=== PATIENT | female | born 1985 | race African-American/Black ===

== ENCOUNTER 2016-12-31 22:11 | Emergency (ER) | payer OTHER ==
[~2016-12-31] VITALS: Ht 152.4 cm; Wt 59.0 kg
[~2016-12-31 22:11] MED LIST: DIVA500T35 PO
[2016-12-31 23:35] LABS: BASOPHILS % (AUTO) 0.2 % (0.0-2.0); EOSINOPHILS % (AUTO) 0.6 % (1.0-6.0); HEMATOCRIT 40.8 % (36-46); LYMPHOCYTES % (AUTO) 21.6 % (22.0-44.0); MEAN CORPUSCULAR HEMOGLOBIN 27.7 pg (26.0-34.0); MEAN CORPUSCULAR HGB CONC 31.7 G/dL (31.0-37.0); MEAN CORPUSCULAR VOLUME 87 fL (80-100); MONOCYTES # (AUTO) 0.5 K/uL (0.1-1.0); MONOCYTES % (AUTO) 4.9 % (2.0-9.0); NEUTROPHILS # (AUTO) 6.7 K/uL (1.8-7.7); NEUTROPHILS % (AUTO) 72.7 % (40.0-70.0); PLATELET COUNT (AUTO) 276 K/uL (150-450); RED BLOOD CELL COUNT(AUTO) 4.68 MIL/uL (4.00-5.20); WHITE BLOOD COUNT (AUTO) 9.2 K/uL (4.5-11.0)
[2016-12-31 23:45] LABS: ANION GAP 8 mmol/L (8-16); CALCIUM, TOTAL 8.8 mg/dL (8.8-10.5); CARBON DIOXIDE 27 mmol/L (22-29); CHLORIDE 100 mmol/L (98-107); CREATININE 0.75 mg/dL (0.60-1.30); GLOMERULAR FILTR. RATE CALC > 60 mL/min (>60); POTASSIUM 3.8 mmol/L (3.5-5.1); SODIUM SERUM 135 mmol/L (136-145); UREA NITROGEN, BLOOD 7 mg/dL (7-18)
[2016-12-31 23:50] LABS: ALANINE AMINOTRANSFERASE 16 U/L (12-78); ALBUMIN 3.7 g/dL (3.4-5.0); ASPARTATE AMINOTRANSFERASE 16 U/L (15-37); BILIRUBIN,TOTAL 0.2 mg/dL (0.1-1.0); TOTAL PROTEIN, SERUM 7.2 g/dL (6.4-8.2)
[2017-01-01] MEDS ORDERED: ACETAMINOPHEN 500 MG TABLET PO ONE (01:30)
[2017-01-01] MEDS ORDERED: PROMETHAZINE HCL 25 MG/ML VIAL IM ONE (03:15)
[2017-01-01] MEDS ORDERED: KETOROLAC TROMETHAMINE 60 MG/2 ML VIAL IM ONE (03:15)
[2017-01-01 04:49] VITALS: BP 111/59
== END 2017-01-01 05:32 | disposition home or self-care (01) ==
LOC: EMS 22:13
DX: F20.0 Paranoid schizophrenia (principal); G43.909 Migraine, unspecified, not intractable, without status migrainosus; F17.210 Nicotine dependence, cigarettes, uncomplicated
CPT/HCPCS: 36415; 80053; 80307; 84703; 85025; 96372; 99284; G0480; J1885; J2550

== ENCOUNTER 2017-01-03 00:34 | Emergency (ER) | payer OTHER ==
[~2017-01-03] VITALS: Ht 160 cm; Wt 45.5 kg
[2017-01-03] MEDS ORDERED: PROMETHAZINE HCL 25 MG/ML VIAL IM ONE (04:00)
[2017-01-03] MEDS ORDERED: MORPHINE SULFATE 4 MG/ML SYRINGE IM ONE (04:00)
[2017-01-03] MEDS ORDERED: DEXAMETHASONE SOD PHOS 4 MG/ML 5 ML VIAL IM ONE (04:00)
[2017-01-03] MEDS ORDERED: HALOPERIDOL LACTATE 5 MG/ML VIAL IM ONE (04:30)
[2017-01-03 06:18] VITALS: BP 117/73
== END 2017-01-03 06:23 | disposition home or self-care (01) ==
LOC: EMS 00:37
DX: G89.29 Other chronic pain (principal); F20.9 Schizophrenia, unspecified; R51 Headache; F17.210 Nicotine dependence, cigarettes, uncomplicated
CPT/HCPCS: 96372; 99284; J1100; J1630; J2270; J2550

== ENCOUNTER 2017-01-20 16:46 | Inpatient (IN) | payer MEDICARE, MEDICAID ==
[~2017-01-20] VITALS: Ht 152.4 cm; Wt 48.8 kg
[2017-01-20] MEDS ORDERED: ZOLPIDEM TARTRATE 10 MG TABLET PO PRN (17:15)
[2017-01-20] MEDS ORDERED: LORazepam 2 MG TABLET PO PRN (17:15)
[2017-01-20 17:38] VITALS: BP 132/84
[2017-01-20 19:26] VITALS: BP_SYST 110; BP_DIAS 73; BP_DIAS 74
[2017-01-20 20:55] VITALS: BP 130/78
[2017-01-20] MEDS: ACETAMINOPHEN 325 MG TABLET PO PRN (20:55)
[2017-01-20] MEDS: HALOPERIDOL 5 MG TABLET PO PRN (20:55)
[2017-01-21 07:09] LABS: BASOPHILS % (AUTO) 0.5 % (0.0-2.0); EOSINOPHILS % (AUTO) 3.2 % (1.0-6.0); HEMATOCRIT 38.8 % (36-46); HEMOGLOBIN 13.1 g/dL (12.0-16.0); LYMPHOCYTES % (AUTO) 53.4 % (22.0-44.0); MEAN CORPUSCULAR HEMOGLOBIN 29.7 pg (26.0-34.0); MEAN CORPUSCULAR HGB CONC 33.7 G/dL (31.0-37.0); MEAN CORPUSCULAR VOLUME 88 fL (80-100); MONOCYTES # (AUTO) 0.5 K/uL (0.1-1.0); MONOCYTES % (AUTO) 8.5 % (2.0-9.0); NEUTROPHILS # (AUTO) 1.9 K/uL (1.8-7.7); NEUTROPHILS % (AUTO) 34.4 % (40.0-70.0); PLATELET COUNT (AUTO) 312 K/uL (150-450); RED CELL DISTRIBUTION WIDTH 15.2 % (11.5-14.5); WHITE BLOOD COUNT (AUTO) 5.6 K/uL (4.5-11.0)
[2017-01-21 07:25] LABS: HEMOGLOBIN A1C 5.5 % (4.5-6.2)
[2017-01-21 08:15] LABS: ALANINE AMINOTRANSFERASE 15 U/L (12-78); ALBUMIN 3.2 g/dL (3.4-5.0); ANION GAP 7 mmol/L (8-16); ASPARTATE AMINOTRANSFERASE 16 U/L (15-37); BILIRUBIN,TOTAL 0.4 mg/dL (0.1-1.0); CALCIUM, TOTAL 8.8 mg/dL (8.8-10.5); CARBON DIOXIDE 28 mmol/L (22-29); CHLORIDE 105 mmol/L (98-107); CHOL/HDL RATIO 2.4 (3.9-5.7); CREATININE 0.66 mg/dL (0.60-1.30); GLOMERULAR FILTR. RATE CALC > 60 mL/min (>60); POTASSIUM 3.7 mmol/L (3.5-5.1); SODIUM SERUM 140 mmol/L (136-145); TOTAL PROTEIN, SERUM 6.4 g/dL (6.4-8.2); UREA NITROGEN, BLOOD 10 mg/dL (7-18)
[2017-01-21 08:18] VITALS: BP 103/74
[2017-01-21] MEDS: NICOTINE 7 MG/24 HOUR PATCH TD SCH (08:26)
[2017-01-21 08:52] LABS: THYROID STIMULATING HORMONE 0.55 uIU/mL (0.36-3.74)
[2017-01-21 16:41] VITALS: BP 132/87
[2017-01-21] MEDS: HALOPERIDOL 5 MG TABLET PO PRN (16:51)
[2017-01-21] MEDS: ACETAMINOPHEN 325 MG TABLET PO PRN (16:53)
[2017-01-21 17:54] LABS: APPEARANCE,URINE TURBID (CLEAR); GLUCOSE, URINE (UA) NEGATIVE (NEGATIVE); KETONES,URINE NEGATIVE (NEGATIVE); LEUKOCYTE ESTERASE ,URINE NEGATIVE (NEGATIVE); OCCULT BLOOD,URINE NEGATIVE (NEGATIVE); PH,URINE 7.5 (5.0-8.0); PROTEIN,URINE NEGATIVE (NEGATIVE)
[2017-01-21 18:10] LABS: ADD UA MICROSCOPIC NO
[2017-01-22 01:10] VITALS: BP 135/98
[2017-01-22] MEDS: ACETAMINOPHEN 325 MG TABLET PO PRN ×4 (01:13→23:49)
[2017-01-22 08:30] VITALS: BP 108/60
[2017-01-22] MEDS: NICOTINE 7 MG/24 HOUR PATCH TD SCH (08:31)
[2017-01-22 16:24] VITALS: BP 124/83
[2017-01-22] MEDS: HALOPERIDOL 5 MG TABLET PO PRN (17:08)
[2017-01-22 17:10] VITALS: BP 118/74
[2017-01-23 06:02] VITALS: BP 136/91
[2017-01-23 10:55] VITALS: BP 133/91
[2017-01-23] MEDS: ACETAMINOPHEN 325 MG TABLET PO PRN (10:58)
[2017-01-23] MEDS: NICOTINE 7 MG/24 HOUR PATCH TD SCH (10:58)
[2017-01-23] MEDS: HALOPERIDOL 5 MG TABLET PO PRN (11:43)
[2017-01-23 16:51] VITALS: BP 111/63
[2017-01-23] MEDS: RisperiDONE 2 MG TABLET PO SCH (18:37)
[2017-01-23] MEDS: DIVALPROEX SODIUM 500 MG ER TABLET PO SCH (18:37)
[2017-01-24 00:05] VITALS: BP 139/60
[2017-01-24] MEDS: ACETAMINOPHEN 325 MG TABLET PO PRN (00:10)
[2017-01-24 08:00] VITALS: BP 104/61
[2017-01-24] MEDS: DIVALPROEX SODIUM 500 MG ER TABLET PO SCH ×2 (08:24→17:24)
[2017-01-24] MEDS: RisperiDONE 2 MG TABLET PO SCH (08:24)
[2017-01-24] MEDS: NICOTINE 7 MG/24 HOUR PATCH TD SCH (08:26)
[2017-01-24 16:14] VITALS: BP 110/70
[2017-01-25] MEDS: ARIPiprazole 15 MG TABLET PO SCH (08:31)
[2017-01-25] MEDS: NICOTINE 7 MG/24 HOUR PATCH TD SCH (08:32)
[2017-01-25] MEDS: DIVALPROEX SODIUM 500 MG ER TABLET PO SCH ×2 (08:32→17:00)
[2017-01-25 10:22] VITALS: BP 115/70
[2017-01-25 19:30] VITALS: BP 108/69
[2017-01-25] MEDS: ACETAMINOPHEN 325 MG TABLET PO PRN (19:30)
[2017-01-26 09:14] VITALS: BP 114/85
[2017-01-26] MEDS: DIVALPROEX SODIUM 500 MG ER TABLET PO SCH ×2 (09:54→17:00)
[2017-01-26] MEDS: NICOTINE 7 MG/24 HOUR PATCH TD SCH (09:54)
[2017-01-26] MEDS: ARIPiprazole 15 MG TABLET PO SCH (09:54)
[2017-01-26 17:30] VITALS: BP 102/77
[2017-01-26] MEDS: ACETAMINOPHEN 325 MG TABLET PO PRN (17:31)
[2017-01-27 03:09] VITALS: BP 107/79
[2017-01-27] MEDS: NICOTINE 7 MG/24 HOUR PATCH TD SCH (08:07)
[2017-01-27] MEDS: ARIPiprazole 15 MG TABLET PO SCH (08:07)
[2017-01-27] MEDS: DIVALPROEX SODIUM 500 MG ER TABLET PO SCH ×2 (08:09→16:00)
[2017-01-27 08:13] VITALS: BP 108/80
[2017-01-27] MEDS: ACETAMINOPHEN 325 MG TABLET PO PRN ×2 (08:13→15:59)
[2017-01-27 08:49] VITALS: BP 108/80
[2017-01-27 09:13] VITALS: BP 120/80
[2017-01-27 15:59] VITALS: BP 114/73
[2017-01-28] MEDS: ARIPiprazole 15 MG TABLET PO SCH (08:36)
[2017-01-28] MEDS: DIVALPROEX SODIUM 500 MG ER TABLET PO SCH ×3 (08:36→16:08)
[2017-01-28] MEDS: NICOTINE 7 MG/24 HOUR PATCH TD SCH (08:37)
[2017-01-28 09:14] VITALS: BP 129/63
[2017-01-28 16:05] VITALS: BP 113/64
[2017-01-28] MEDS: ACETAMINOPHEN 325 MG TABLET PO PRN (16:07)
[2017-01-28 17:05] VITALS: BP 128/68
[2017-01-29 08:45] VITALS: BP 110/78
[2017-01-29] MEDS: DIVALPROEX SODIUM 500 MG ER TABLET PO SCH (09:00)
[2017-01-29] MEDS: ARIPiprazole 15 MG TABLET PO SCH (09:19)
[2017-01-29] MEDS: NICOTINE 7 MG/24 HOUR PATCH TD SCH (09:20)
[2017-01-29] MEDS ORDERED: ARIP15TA3 PO (12:07)
[2017-01-29] MEDS ORDERED: DIVA500T52 PO (12:08)
[2017-01-29] MEDS ORDERED: NICO7T TD (12:09)
== END 2017-01-29 12:45 | disposition home or self-care (01) | DRG 885 ==
LOC: 3EX 17:18 → EDSTATUS 17:43 → 3EX 18:00
PROVIDERS: ADMIT Psychiatry & Neurology Psychiatry; ATTEND Psychiatry & Neurology Psychiatry
DX: F20.0 Paranoid schizophrenia (principal); E87.1 Hypo-osmolality and hyponatremia; R45.851 Suicidal ideations; F12.90 Cannabis use, unspecified, uncomplicated; E55.9 Vitamin D deficiency, unspecified; Z59.0 Homelessness; Z82.3 Family history of stroke; Z85.41 Personal history of malignant neoplasm of cervix uteri
CPT/HCPCS: 83036; 84439; 84443; 86592

== ENCOUNTER 2017-05-14 19:22 | Emergency (ER) | payer MEDICARE, OTHER ==
[~2017-05-14] VITALS: Ht 147.3 cm; Wt 44.0 kg
[~2017-05-14 19:22] MED LIST changes: +ARIP15TA2 PO; -DIVA500T35 PO; +DIVA500T52 PO
[2017-05-14 20:07] LABS: BASOPHILS % (AUTO) 0.4 % (0.0-2.0); EOSINOPHILS % (AUTO) 0.8 % (1.0-6.0); HEMATOCRIT 38.9 % (36-46); HEMOGLOBIN 13.1 g/dL (12.0-16.0); LYMPHOCYTES # (AUTO) 2.3 K/uL (1.0-4.8); LYMPHOCYTES % (AUTO) 24.9 % (22.0-44.0); MEAN CORPUSCULAR HGB CONC 33.7 G/dL (31.0-37.0); MEAN CORPUSCULAR VOLUME 89 fL (80-100); MONOCYTES # (AUTO) 0.5 K/uL (0.1-1.0); MONOCYTES % (AUTO) 5.6 % (2.0-9.0); NEUTROPHILS # (AUTO) 6.2 K/uL (1.8-7.7); NEUTROPHILS % (AUTO) 68.3 % (40.0-70.0); PLATELET COUNT (AUTO) 338 K/uL (150-450); RED BLOOD CELL COUNT(AUTO) 4.38 MIL/uL (4.00-5.20)
[2017-05-14 20:21] LABS: ANION GAP 7 mmol/L (8-16); CALCIUM, TOTAL 8.9 mg/dL (8.8-10.5); CARBON DIOXIDE 28 mmol/L (22-29); CHLORIDE 105 mmol/L (98-107); CREATININE 0.74 mg/dL (0.60-1.30); GLOMERULAR FILTR. RATE CALC > 60 mL/min (>60); POTASSIUM 3.6 mmol/L (3.5-5.1); SODIUM SERUM 140 mmol/L (136-145); UREA NITROGEN, BLOOD 10 mg/dL (7-18)
[2017-05-14 20:26] LABS: ALANINE AMINOTRANSFERASE 21 U/L (12-78); ALBUMIN 3.7 g/dL (3.4-5.0); ASPARTATE AMINOTRANSFERASE 38 U/L (15-37); BILIRUBIN,TOTAL 0.5 mg/dL (0.1-1.0)
[2017-05-14] MEDS ORDERED: LORazepam 2 MG TABLET PO ONE (20:45)
[2017-05-14] MEDS ORDERED: IBUPROFEN 600 MG TABLET PO ONE (20:45)
[2017-05-14 21:08] VITALS: BP 122/79
== END 2017-05-14 21:13 | disposition home or self-care (01) ==
LOC: EMS 19:23
DX: F41.9 Anxiety disorder, unspecified (principal); R51 Headache; F20.9 Schizophrenia, unspecified; F17.210 Nicotine dependence, cigarettes, uncomplicated
CPT/HCPCS: 36415; 80053; 80307; 85025; 99285; G0480

== ENCOUNTER 2018-03-06 22:16 | Inpatient (IN) | payer MEDICARE, MEDICAID ==
[~2018-03-06] VITALS: Ht 152.4 cm; Wt 50.3 kg
[2018-03-06] MEDS ORDERED: ACET500C4 PO (23:04)
[2018-03-06] MEDS ORDERED: IBUP-2070 PO (23:04)
[2018-03-06 23:23] LABS: EOSINOPHILS % (AUTO) 4.3 % (1.0-6.0); HEMATOCRIT 38.2 % (36-46); HEMOGLOBIN 12.9 g/dL (12.0-16.0); LYMPHOCYTES % (AUTO) 44.7 % (22.0-44.0); MEAN CORPUSCULAR HEMOGLOBIN 29.3 pg (26.0-34.0); MEAN CORPUSCULAR HGB CONC 33.9 G/dL (31.0-37.0); MEAN CORPUSCULAR VOLUME 87 fL (80-100); MONOCYTES # (AUTO) 0.4 K/uL (0.1-1.0); MONOCYTES % (AUTO) 5.7 % (2.0-9.0); NEUTROPHILS % (AUTO) 44.3 % (40.0-70.0); PLATELET COUNT (AUTO) 306 K/uL (150-450); RED BLOOD CELL COUNT(AUTO) 4.41 MIL/uL (4.00-5.20)
[2018-03-06 23:30] LABS: AMPHET/METH SCREEN,URINE NEGATIVE (NEGATIVE); BARBITURATE SCREEN, URINE NEGATIVE (NEGATIVE); BENZODIAZEPINES SCREEN,URINE NEGATIVE (NEGATIVE); CANNABINOID SCREEN,URINE NEGATIVE (NEGATIVE); COCAINE SCREEN,URINE NEGATIVE (NEGATIVE); METHADONE SCREEN, URINE NEGATIVE (NEGATIVE); OPIATE SCREEN,URINE NEGATIVE (NEGATIVE)
[2018-03-06 23:33] LABS: PHENCYCLIDINE SCREEN,URINE NEGATIVE (NEGATIVE)
[2018-03-06 23:42] LABS: ANION GAP 8 mmol/L (8-16); CALCIUM, TOTAL 9.1 mg/dL (8.8-10.5); CARBON DIOXIDE 28 mmol/L (22-29); CHLORIDE 108 mmol/L (98-107); CREATININE 0.65 mg/dL (0.60-1.30); GLOMERULAR FILTR. RATE CALC > 60 mL/min (>60); GLUCOSE,RANDOM 96 mg/dL (70-110); SODIUM SERUM 144 mmol/L (136-145); UREA NITROGEN, BLOOD 10 mg/dL (7-18)
[2018-03-06 23:49] LABS: ALANINE AMINOTRANSFERASE 26 U/L (12-78); ALBUMIN 3.1 g/dL (3.4-5.0); ALKALINE PHOSPHATASE 83 U/L (46-116); ASPARTATE AMINOTRANSFERASE 16 U/L (15-37); BILIRUBIN,TOTAL 0.1 mg/dL (0.1-1.0); TOTAL PROTEIN, SERUM 6.7 g/dL (6.4-8.2)
[2018-03-07] MEDS ORDERED: LORazepam 2 MG TABLET PO PRN (00:30)
[2018-03-07] MEDS ORDERED: HALOPERIDOL 5 MG TABLET PO PRN (00:30)
[2018-03-07 03:33] VITALS: BP 118/79
[2018-03-07 08:05] VITALS: BP 119/68
[2018-03-07 16:11] VITALS: BP 112/72
[2018-03-07] MEDS ORDERED: ONDANSETRON HCL 4 MG TABLET PO PRN (17:15)
[2018-03-07] MEDS ORDERED: LOPERAMIDE HCL 2 MG CAPSULE PO PRN (17:15)
[2018-03-07] MEDS ORDERED: CloNIDine HCL 0.1 MG TABLET PO PRN (17:15)
[2018-03-07] MEDS ORDERED: BACITRACIN 28.4 GM OINTMENT TP PRN (17:15)
[2018-03-07] MEDS ORDERED: IBUPROFEN 600 MG TABLET PO PRN (17:15)
[2018-03-07] MEDS ORDERED: ALBUTEROL SULFATE HFA 90 MCG/PUFF 8 GM INHALER IH PRN ×2 (17:15→20:00)
[2018-03-07] MEDS ORDERED: MAG HYDROX/AL HYDROX/SIMETH ES 30 ML SUSPENSION UDCUP PO PRN (17:15)
[2018-03-07] MEDS ORDERED: PETROLATUM,WHITE 71 GM JELLY TP PRN (17:15)
[2018-03-07] MEDS ORDERED: MAGNESIUM HYDROXIDE SUSPENSION 30 ML UDCUP PO PRN (17:15)
[2018-03-07] MEDS ORDERED: BENZOCAINE/MENTHOL LOZENGE MM PRN (17:15)
[2018-03-07] MEDS: ACETAMINOPHEN 325 MG TABLET PO PRN (17:33)
[2018-03-07] MEDS: ZOLPIDEM TARTRATE 10 MG TABLET PO PRN (20:52)
[2018-03-08 08:35] VITALS: BP 107/66
[2018-03-08] MEDS: OMEPRAZOLE 20 MG CAPSULE PO SCH (08:43)
[2018-03-08] MEDS: DOCUSATE SODIUM 100 MG CAPSULE PO SCH (08:43)
[2018-03-08 11:08] VITALS: BP 116/72
[2018-03-08] MEDS: ACETAMINOPHEN 325 MG TABLET PO PRN (11:09)
[2018-03-08 15:02] VITALS: BP 116/72
[2018-03-08 16:09] VITALS: BP 111/67
[2018-03-08] MEDS: RisperiDONE 2 MG TABLET PO SCH (16:59)
[2018-03-08] MEDS: DIVALPROEX SODIUM 500 MG ER TABLET PO SCH (16:59)
[2018-03-09 00:04] VITALS: BP 110/68
[2018-03-09] MEDS: ZOLPIDEM TARTRATE 10 MG TABLET PO PRN ×2 (00:05→21:35)
[2018-03-09 06:50] VITALS: BP 121/68
[2018-03-09] MEDS: ACETAMINOPHEN 325 MG TABLET PO PRN (07:08)
[2018-03-09 07:59] LABS: CHOL/HDL RATIO 2.9 (3.9-5.7)
[2018-03-09 08:15] VITALS: BP 105/69
[2018-03-09] MEDS: OMEPRAZOLE 20 MG CAPSULE PO SCH (09:00)
[2018-03-09] MEDS: DOCUSATE SODIUM 100 MG CAPSULE PO SCH (09:00)
[2018-03-09] MEDS: DIVALPROEX SODIUM 500 MG ER TABLET PO SCH ×2 (09:00→17:00)
[2018-03-09] MEDS: RisperiDONE 2 MG TABLET PO SCH ×2 (09:00→17:00)
[2018-03-09] MEDS ORDERED: DEXTRAN 70 0.1%/HYPROMELL 0.3% 0.9 ML OPHTHALMIC SOLUTION [PF] OU PRN ×2 (16:00)
[2018-03-09 17:58] VITALS: BP 117/69
[2018-03-10 00:38] VITALS: BP 107/65
[2018-03-10] MEDS: DOCUSATE SODIUM 100 MG CAPSULE PO SCH (08:13)
[2018-03-10] MEDS: DIVALPROEX SODIUM 500 MG ER TABLET PO SCH (08:13)
[2018-03-10] MEDS: OMEPRAZOLE 20 MG CAPSULE PO SCH (08:14)
[2018-03-10] MEDS: RisperiDONE 2 MG TABLET PO SCH (08:14)
[2018-03-10 08:25] VITALS: BP 102/73
[2018-03-10] MEDS: ACETAMINOPHEN 325 MG TABLET PO PRN (14:18)
[2018-03-10] MEDS ORDERED: DIVA250T60 PO (14:24)
[2018-03-10] MEDS ORDERED: DOCU100C33 PO (14:25)
[2018-03-10] MEDS ORDERED: OMEP20 PO (14:25)
[2018-03-10] MEDS ORDERED: RISP2TAB76 PO (14:25)
== END 2018-03-10 16:07 | disposition home or self-care (01) | DRG 885 ==
LOC: EMS 22:18 → B2S 03-07 01:46
PROVIDERS: ADMIT Psychiatry & Neurology Psychiatry; ATTEND Psychiatry & Neurology Psychiatry
DX: F25.9 Schizoaffective disorder, unspecified (principal); R45.851 Suicidal ideations; F17.200 Nicotine dependence, unspecified, uncomplicated; F12.90 Cannabis use, unspecified, uncomplicated; K59.00 Constipation, unspecified; H26.9 Unspecified cataract; G47.00 Insomnia, unspecified; F41.9 Anxiety disorder, unspecified; R51 Headache; Z71.6 Tobacco abuse counseling; Z71.51 Drug abuse counseling and surveillance of drug abuser; Z79.899 Other long term (current) drug therapy
CPT/HCPCS: 99285; G0480

== ENCOUNTER 2018-03-08 20:08 | Emergency (ER) | payer OTHER ==
[~2018-03-08] VITALS: Ht 152.4 cm; Wt 50.9 kg
[~2018-03-08 20:08] MED LIST changes: +ACET500C4 PO; -DIVA500T52 PO; +IBUP-2070 PO
[2018-03-08] MEDS ORDERED: DEXTRAN 70 0.1%/HYPROMELL 0.3% 0.9 ML OPHTHALMIC SOLUTION [PF] OU ONE (22:45)
[2018-03-08] MEDS ORDERED: ACETAMINOPHEN 500 MG TABLET PO ONE (22:45)
[2018-03-08 22:59] VITALS: BP 100/60
== END 2018-03-08 23:23 | disposition home or self-care (01) ==
LOC: EMS 20:09
DX: H26.223 Cataract secondary to ocular disorders (degenerative) (inflammatory), bilateral (principal); F41.9 Anxiety disorder, unspecified; F17.210 Nicotine dependence, cigarettes, uncomplicated; F20.9 Schizophrenia, unspecified; F12.90 Cannabis use, unspecified, uncomplicated; Z79.899 Other long term (current) drug therapy
CPT/HCPCS: 99283; 99284

== ENCOUNTER 2018-04-13 18:35 | Emergency (ER) | payer OTHER ==
[~2018-04-13] VITALS: Ht 152.4 cm; Wt 52.3 kg
[~2018-04-13 18:35] MED LIST changes: -ACET500C4 PO; -ARIP15TA2 PO; +DIVA250T60 PO; +DOCU100C33 PO; -IBUP-2070 PO; +OMEP20 PO; +RISP2TAB76 PO
[2018-04-13] MEDS ORDERED: ACETAMINOPHEN 500 MG TABLET PO ONE (20:45)
[2018-04-13 20:54] VITALS: BP 124/78
== END 2018-04-13 21:00 | disposition home or self-care (01) ==
LOC: EMS 18:38
DX: H57.13 Ocular pain, bilateral (principal); F20.9 Schizophrenia, unspecified; F12.90 Cannabis use, unspecified, uncomplicated; F14.90 Cocaine use, unspecified, uncomplicated; F17.210 Nicotine dependence, cigarettes, uncomplicated
CPT/HCPCS: 99283; 99406

== ENCOUNTER 2018-09-17 07:37 | Emergency (ER) | payer OTHER ==
[~2018-09-17] VITALS: Ht 172.7 cm; Wt 49.1 kg
[2018-09-17] MEDS ORDERED: PALI39DI IM (08:26)
[2018-09-17 08:41] LABS: EOSINOPHILS % (AUTO) 0.9 % (1.0-6.0); HEMATOCRIT 41.7 % (36-46); LYMPHOCYTES # (AUTO) 1.9 K/uL (1.0-4.8); LYMPHOCYTES % (AUTO) 22.2 % (22.0-44.0); MEAN CORPUSCULAR HEMOGLOBIN 28.7 pg (26.0-34.0); MEAN CORPUSCULAR HGB CONC 33.6 G/dL (31.0-37.0); MEAN CORPUSCULAR VOLUME 86 fL (80-100); MONOCYTES # (AUTO) 0.5 K/uL (0.1-1.0); MONOCYTES % (AUTO) 5.9 % (2.0-9.0); PLATELET COUNT (AUTO) 326 K/uL (150-450); RED BLOOD CELL COUNT(AUTO) 4.88 MIL/uL (4.00-5.20); RED CELL DISTRIBUTION WIDTH 14.7 % (11.5-14.5)
[2018-09-17 08:51] LABS: AMPHET/METH SCREEN,URINE POSITIVE (NEGATIVE); BARBITURATE SCREEN, URINE NEGATIVE (NEGATIVE); BENZODIAZEPINES SCREEN,URINE NEGATIVE (NEGATIVE); CANNABINOID SCREEN,URINE POSITIVE (NEGATIVE); COCAINE SCREEN,URINE POSITIVE (NEGATIVE); METHADONE SCREEN, URINE NEGATIVE (NEGATIVE); OPIATE SCREEN,URINE NEGATIVE (NEGATIVE)
[2018-09-17 08:53] LABS: PHENCYCLIDINE SCREEN,URINE NEGATIVE (NEGATIVE)
[2018-09-17 09:00] LABS: ANION GAP 5 mmol/L (8-16); CALCIUM, TOTAL 9.2 mg/dL (8.8-10.5); CARBON DIOXIDE 32 mmol/L (22-29); CHLORIDE 102 mmol/L (98-107); CREATININE 0.69 mg/dL (0.60-1.30); GLOMERULAR FILTR. RATE CALC > 60 mL/min (>60); GLUCOSE,RANDOM 80 mg/dL (70-110); POTASSIUM 4.1 mmol/L (3.5-5.1); SODIUM SERUM 139 mmol/L (136-145); UREA NITROGEN, BLOOD 8 mg/dL (7-18)
[2018-09-17 09:12] LABS: ALANINE AMINOTRANSFERASE 20 U/L (12-78); ALBUMIN 3.3 g/dL (3.4-5.0); ALKALINE PHOSPHATASE 112 U/L (46-116); ASPARTATE AMINOTRANSFERASE 21 U/L (15-37); BILIRUBIN,TOTAL 0.2 mg/dL (0.1-1.0); HCG,QUANTITATIVE < 1 mIU/mL (0-6); TOTAL PROTEIN, SERUM 7.1 g/dL (6.4-8.2)
[2018-09-17 09:53] VITALS: BP 115/68
== END 2018-09-17 10:23 | disposition home or self-care (01) ==
LOC: EMS 07:39
DX: F20.9 Schizophrenia, unspecified (principal); F19.10 Other psychoactive substance abuse, uncomplicated; H26.9 Unspecified cataract; F17.210 Nicotine dependence, cigarettes, uncomplicated; F12.90 Cannabis use, unspecified, uncomplicated; F11.90 Opioid use, unspecified, uncomplicated
CPT/HCPCS: 36415; 80053; 80307; 84702; 85025; 99285; G0480

== ENCOUNTER 2019-01-02 21:15 | Emergency (ER) | payer OTHER ==
[~2019-01-02] VITALS: Ht 149.9 cm; Wt 50.0 kg
[~2019-01-02 21:15] MED LIST changes: -DIVA250T60 PO; -DOCU100C33 PO; -OMEP20 PO; +PALI39DI IM; -RISP2TAB76 PO
[2019-01-02 23:58] VITALS: BP 119/54
== END 2019-01-03 | disposition home or self-care (01) ==
LOC: EMS 21:16
DX: F41.9 Anxiety disorder, unspecified (principal); F20.9 Schizophrenia, unspecified; F17.210 Nicotine dependence, cigarettes, uncomplicated; F12.90 Cannabis use, unspecified, uncomplicated

== ENCOUNTER 2019-02-08 20:31 | Emergency (ER) | payer OTHER ==
[~2019-02-08] VITALS: Ht 152.4 cm; Wt 53.6 kg
[2019-02-08 23:38] LABS: BASOPHILS % (AUTO) 0.6 % (0.0-2.0); EOSINOPHILS % (AUTO) 1.5 % (1.0-6.0); HEMOGLOBIN 12.1 g/dL (12.0-16.0); LYMPHOCYTES # (AUTO) 2.2 K/uL (1.0-4.8); LYMPHOCYTES % (AUTO) 29.1 % (22.0-44.0); MEAN CORPUSCULAR HEMOGLOBIN 29.5 pg (26.0-34.0); MEAN CORPUSCULAR HGB CONC 33.6 G/dL (31.0-37.0); MEAN CORPUSCULAR VOLUME 88 fL (80-100); MONOCYTES # (AUTO) 0.6 K/uL (0.1-1.0); MONOCYTES % (AUTO) 8.3 % (2.0-9.0); NEUTROPHILS # (AUTO) 4.5 K/uL (1.8-7.7); NEUTROPHILS % (AUTO) 60.5 % (40.0-70.0); PLATELET COUNT (AUTO) 226 K/uL (150-450); RED BLOOD CELL COUNT(AUTO) 4.09 MIL/uL (4.00-5.20); RED CELL DISTRIBUTION WIDTH 13.7 % (11.5-14.5)
[2019-02-08 23:42] LABS: AMPHET/METH SCREEN,URINE NEGATIVE (NEGATIVE); BARBITURATE SCREEN, URINE NEGATIVE (NEGATIVE); BENZODIAZEPINES SCREEN,URINE NEGATIVE (NEGATIVE); CANNABINOID SCREEN,URINE POSITIVE (NEGATIVE); COCAINE SCREEN,URINE POSITIVE (NEGATIVE); METHADONE SCREEN, URINE NEGATIVE (NEGATIVE); OPIATE SCREEN,URINE NEGATIVE (NEGATIVE); PHENCYCLIDINE SCREEN,URINE NEGATIVE (NEGATIVE)
[2019-02-08 23:51] LABS: ANION GAP 8 mmol/L (8-16); CALCIUM, TOTAL 9.1 mg/dL (8.8-10.5); CARBON DIOXIDE 24 mmol/L (22-29); CHLORIDE 104 mmol/L (98-107); CREATININE 0.59 mg/dL (0.60-1.30); GLOMERULAR FILTR. RATE CALC > 60 mL/min (>60); GLUCOSE,RANDOM 81 mg/dL (70-110); POTASSIUM 3.5 mmol/L (3.5-5.1); SODIUM SERUM 136 mmol/L (136-145); UREA NITROGEN, BLOOD 8 mg/dL (7-18)
[2019-02-09 00:18] LABS: ALANINE AMINOTRANSFERASE 7 U/L (12-78); ALBUMIN 2.4 g/dL (3.4-5.0); ALKALINE PHOSPHATASE 67 U/L (46-116); ASPARTATE AMINOTRANSFERASE 16 U/L (15-37); HCG,QUANTITATIVE 70638 mIU/mL (0-6); TOTAL PROTEIN, SERUM 6.2 g/dL (6.4-8.2)
[2019-02-09 00:36] LABS: BILIRUBIN,TOTAL 0.1 mg/dL (0.1-1.0)
[2019-02-09 04:30] LABS: APPEARANCE,URINE CLOUDY (CLEAR); BILIRUBIN,URINE NEGATIVE (NEGATIVE); GLUCOSE, URINE (UA) 250 mg/dL (NEGATIVE); KETONES,URINE NEGATIVE (NEGATIVE); LEUKOCYTE ESTERASE ,URINE TRACE (NEGATIVE); NITRATE,URINE POSITIVE (NEGATIVE); OCCULT BLOOD,URINE TRACE (NEGATIVE); PH,URINE 5.5 (5.0-8.0); PROTEIN,URINE NEGATIVE (NEGATIVE)
[2019-02-09 04:43] LABS: BACTERIA,URINE Many /HPF (None Seen); RBC,URINE 0-2 /HPF (0-2); SQUAMOUS EPITHELIAL CELL,UR Few /LPF (None Seen); TRIPLE PHOSPHATE CRYSTAL,UR Few /LPF (None Seen)
[2019-02-09] MEDS ORDERED: CEPHALEXIN MONOHYDRATE 500 MG CAPSULE PO ONE (05:00)
[2019-02-09 05:41] VITALS: BP 139/59
== END 2019-02-09 05:42 | disposition home or self-care (01) ==
LOC: EMS 20:32
DX: O23.42 Unspecified infection of urinary tract in pregnancy, second trimester (principal); O99.322 Drug use complicating pregnancy, second trimester; O99.332 Smoking (tobacco) complicating pregnancy, second trimester; F20.9 Schizophrenia, unspecified; F12.90 Cannabis use, unspecified, uncomplicated; F19.10 Other psychoactive substance abuse, uncomplicated; Z3A.15 15 weeks gestation of pregnancy; Z79.899 Other long term (current) drug therapy
CPT/HCPCS: 36415; 76801; 76817; 80053; 80307; 81001; 84702; 85025; 87077; 87086; 99285; G0480

== ENCOUNTER 2019-03-30 01:27 | Emergency (ER) | payer OTHER ==
[~2019-03-30] VITALS: Ht 152.4 cm; Wt 53.6 kg
[2019-03-30 01:58] LABS: BASOPHILS % (AUTO) 0.8 % (0.0-2.0); EOSINOPHILS % (AUTO) 2.6 % (1.0-6.0); HEMATOCRIT 41.7 % (36-46); HEMOGLOBIN 13.6 g/dL (12.0-16.0); LYMPHOCYTES # (AUTO) 2.3 K/uL (1.0-4.8); LYMPHOCYTES % (AUTO) 39.1 % (22.0-44.0); MEAN CORPUSCULAR HEMOGLOBIN 28.8 pg (26.0-34.0); MEAN CORPUSCULAR HGB CONC 32.5 G/dL (31.0-37.0); MEAN CORPUSCULAR VOLUME 89 fL (80-100); MONOCYTES # (AUTO) 0.6 K/uL (0.1-1.0); MONOCYTES % (AUTO) 10.7 % (2.0-9.0); NEUTROPHILS # (AUTO) 2.8 K/uL (1.8-7.7); NEUTROPHILS % (AUTO) 46.8 % (40.0-70.0); PLATELET COUNT (AUTO) 288 K/uL (150-450); RED BLOOD CELL COUNT(AUTO) 4.71 MIL/uL (4.00-5.20); RED CELL DISTRIBUTION WIDTH 13.4 % (11.5-14.5)
[2019-03-30 02:03] LABS: ANION GAP 6 mmol/L (8-16); CALCIUM, TOTAL 9.1 mg/dL (8.8-10.5); CARBON DIOXIDE 28 mmol/L (22-29); CHLORIDE 103 mmol/L (98-107); GLOMERULAR FILTR. RATE CALC > 60 mL/min (>60); GLUCOSE,RANDOM 84 mg/dL (70-110); POTASSIUM 3.5 mmol/L (3.5-5.1); SODIUM SERUM 137 mmol/L (136-145); UREA NITROGEN, BLOOD 4 mg/dL (7-18)
[2019-03-30 02:15] LABS: ALANINE AMINOTRANSFERASE 10 U/L (12-78); ALBUMIN 3.5 g/dL (3.4-5.0); ALKALINE PHOSPHATASE 104 U/L (46-116); ASPARTATE AMINOTRANSFERASE 16 U/L (15-37); BILIRUBIN,TOTAL 0.2 mg/dL (0.1-1.0); HCG,QUANTITATIVE 1 mIU/mL (0-6); TOTAL PROTEIN, SERUM 7.2 g/dL (6.4-8.2)
[2019-03-30 05:12] LABS: AMPHET/METH SCREEN,URINE POSITIVE (NEGATIVE); BARBITURATE SCREEN, URINE NEGATIVE (NEGATIVE); BENZODIAZEPINES SCREEN,URINE NEGATIVE (NEGATIVE); CANNABINOID SCREEN,URINE POSITIVE (NEGATIVE); COCAINE SCREEN,URINE POSITIVE (NEGATIVE); METHADONE SCREEN, URINE NEGATIVE (NEGATIVE); OPIATE SCREEN,URINE NEGATIVE (NEGATIVE)
[2019-03-30 05:21] LABS: PHENCYCLIDINE SCREEN,URINE NEGATIVE (NEGATIVE)
[2019-03-30 10:00] VITALS: BP 110/75
[2019-03-30] MEDS ORDERED: ACETAMINOPHEN 500 MG TABLET PO ONE ×2 (10:00→10:15)
[2019-03-30] MEDS ORDERED: ACETAMINOPHEN 325 MG TABLET PO ONE (10:15)
== END 2019-03-30 10:42 | disposition home or self-care (01) ==
LOC: EMS 01:28
DX: F20.9 Schizophrenia, unspecified (principal); F15.10 Other stimulant abuse, uncomplicated; F14.10 Cocaine abuse, uncomplicated; F12.10 Cannabis abuse, uncomplicated; F17.210 Nicotine dependence, cigarettes, uncomplicated
CPT/HCPCS: 36415; 80053; 80307; 84702; 85025; 99285; 99406; G0480

== ENCOUNTER 2019-05-18 01:56 | Emergency (ER) | payer OTHER ==
[~2019-05-18] VITALS: Ht 152.4 cm; Wt 50.9 kg
[2019-05-18 05:19] LABS: APPEARANCE,URINE CLOUDY (CLEAR); BILIRUBIN,URINE NEGATIVE (NEGATIVE); GLUCOSE, URINE (UA) NEGATIVE (NEGATIVE); KETONES,URINE TRACE mg/dL (NEGATIVE); LEUKOCYTE ESTERASE ,URINE TRACE (NEGATIVE); NITRATE,URINE POSITIVE (NEGATIVE); OCCULT BLOOD,URINE MODERATE (NEGATIVE); PH,URINE 5.5 (5.0-8.0); PROTEIN,URINE NEGATIVE (NEGATIVE); UROBILINOGEN,URINE 0.2 mg/dL (<=1.0)
[2019-05-18 05:24] LABS: AMPHET/METH SCREEN,URINE POSITIVE (NEGATIVE); BARBITURATE SCREEN, URINE NEGATIVE (NEGATIVE); BENZODIAZEPINES SCREEN,URINE NEGATIVE (NEGATIVE); CANNABINOID SCREEN,URINE POSITIVE (NEGATIVE); COCAINE SCREEN,URINE POSITIVE (NEGATIVE); METHADONE SCREEN, URINE NEGATIVE (NEGATIVE); OPIATE SCREEN,URINE NEGATIVE (NEGATIVE); PHENCYCLIDINE SCREEN,URINE NEGATIVE (NEGATIVE)
[2019-05-18 05:46] LABS: BACTERIA,URINE Many /HPF (None Seen); SQUAMOUS EPITHELIAL CELL,UR Few /LPF (None Seen)
[2019-05-18 05:56] VITALS: BP 133/74
== END 2019-05-18 06:24 | disposition home or self-care (01) ==
LOC: EMS 01:59
DX: F15.10 Other stimulant abuse, uncomplicated (principal); F12.10 Cannabis abuse, uncomplicated; N39.0 Urinary tract infection, site not specified; F20.9 Schizophrenia, unspecified; F17.210 Nicotine dependence, cigarettes, uncomplicated
CPT/HCPCS: 87086

== ENCOUNTER 2019-05-30 21:41 | Emergency (ER) | payer OTHER ==
[~2019-05-30] VITALS: Ht 152.4 cm; Wt 51.4 kg
[2019-05-30 22:45] LABS: BASOPHILS % (AUTO) 0.9 % (0.0-2.0); EOSINOPHILS % (AUTO) 1.3 % (1.0-6.0); HEMATOCRIT 40.4 % (36-46); HEMOGLOBIN 13.4 g/dL (12.0-16.0); LYMPHOCYTES # (AUTO) 2.3 K/uL (1.0-4.8); LYMPHOCYTES % (AUTO) 45.1 % (22.0-44.0); MEAN CORPUSCULAR HGB CONC 33.1 G/dL (31.0-37.0); MEAN CORPUSCULAR VOLUME 85 fL (80-100); MONOCYTES # (AUTO) 0.5 K/uL (0.1-1.0); MONOCYTES % (AUTO) 9.3 % (2.0-9.0); NEUTROPHILS # (AUTO) 2.2 K/uL (1.8-7.7); NEUTROPHILS % (AUTO) 43.4 % (40.0-70.0); PLATELET COUNT (AUTO) 410 K/uL (150-450); RED BLOOD CELL COUNT(AUTO) 4.78 MIL/uL (4.00-5.20); RED CELL DISTRIBUTION WIDTH 13.7 % (11.5-14.5)
[2019-05-30 23:05] LABS: ANION GAP 6 mmol/L (8-16); CALCIUM, TOTAL 8.9 mg/dL (8.8-10.5); CARBON DIOXIDE 30 mmol/L (22-29); CHLORIDE 101 mmol/L (98-107); CREATININE 0.77 mg/dL (0.60-1.30); GLOMERULAR FILTR. RATE CALC > 60 mL/min (>60); GLUCOSE,RANDOM 86 mg/dL (70-110); POTASSIUM 3.6 mmol/L (3.5-5.1); SODIUM SERUM 137 mmol/L (136-145); UREA NITROGEN, BLOOD 9 mg/dL (7-18)
[2019-05-30 23:14] LABS: ALANINE AMINOTRANSFERASE 15 U/L (12-78); ALBUMIN 3.5 g/dL (3.4-5.0); ALKALINE PHOSPHATASE 133 U/L (46-116); ASPARTATE AMINOTRANSFERASE 16 U/L (15-37); BILIRUBIN,TOTAL 0.4 mg/dL (0.1-1.0); HCG,QUANTITATIVE < 1 mIU/mL (0-6); TOTAL PROTEIN, SERUM 7.9 g/dL (6.4-8.2)
[2019-05-31 11:39] VITALS: BP 128/66
[2019-05-31] MEDS ORDERED: ACETAMINOPHEN 325 MG TABLET PO ONE (12:15)
[2019-05-31] MEDS ORDERED: OLANZapine 5 MG TABLET PO ONE (13:15)
== END 2019-05-31 14:39 | disposition home or self-care (01) ==
LOC: EMS 21:42
DX: F20.9 Schizophrenia, unspecified (principal); F17.210 Nicotine dependence, cigarettes, uncomplicated; F12.90 Cannabis use, unspecified, uncomplicated; Z79.899 Other long term (current) drug therapy; Z98.890 Other specified postprocedural states
CPT/HCPCS: 36415; 80053; 84702; 85025; 99284; G0480

== ENCOUNTER 2019-06-26 18:04 | Emergency (ER) | payer OTHER ==
[~2019-06-26] VITALS: Ht 149.9 cm; Wt 48.9 kg
[2019-06-26 18:23] VITALS: BP 150/94
[2019-06-26] MEDS ORDERED: OLAN2.5T3 PO (18:41)
[2019-06-26 19:09] LABS: BASOPHILS % (AUTO) 0.8 % (0.0-2.0); EOSINOPHILS % (AUTO) 2.2 % (1.0-6.0); HEMOGLOBIN 12.1 g/dL (12.0-16.0); LYMPHOCYTES # (AUTO) 1.6 K/uL (1.0-4.8); LYMPHOCYTES % (AUTO) 21.1 % (22.0-44.0); MEAN CORPUSCULAR HEMOGLOBIN 27.6 pg (26.0-34.0); MEAN CORPUSCULAR HGB CONC 33.6 G/dL (31.0-37.0); MEAN CORPUSCULAR VOLUME 82 fL (80-100); MONOCYTES # (AUTO) 0.5 K/uL (0.1-1.0); MONOCYTES % (AUTO) 7.2 % (2.0-9.0); NEUTROPHILS # (AUTO) 5.1 K/uL (1.8-7.7); NEUTROPHILS % (AUTO) 68.7 % (40.0-70.0); PLATELET COUNT (AUTO) 554 K/uL (150-450); RED BLOOD CELL COUNT(AUTO) 4.37 MIL/uL (4.00-5.20); RED CELL DISTRIBUTION WIDTH 14.2 % (11.5-14.5)
[2019-06-26 20:01] LABS: ANION GAP 6 mmol/L (8-16); CARBON DIOXIDE 29 mmol/L (22-29); CHLORIDE 103 mmol/L (98-107); CREATININE 0.62 mg/dL (0.60-1.30); GLOMERULAR FILTR. RATE CALC > 60 mL/min (>60); GLUCOSE,RANDOM 99 mg/dL (70-110); POTASSIUM 3.5 mmol/L (3.5-5.1); SODIUM SERUM 138 mmol/L (136-145); UREA NITROGEN, BLOOD 10 mg/dL (7-18)
[2019-06-26 20:06] LABS: ALANINE AMINOTRANSFERASE 19 U/L (12-78); ALBUMIN 3.1 g/dL (3.4-5.0); ALKALINE PHOSPHATASE 230 U/L (46-116); ASPARTATE AMINOTRANSFERASE 14 U/L (15-37); BILIRUBIN,TOTAL 0.2 mg/dL (0.1-1.0); TOTAL PROTEIN, SERUM 8.1 g/dL (6.4-8.2)
[2019-06-26 21:12] LABS: AMPHET/METH SCREEN,URINE POSITIVE (NEGATIVE); BARBITURATE SCREEN, URINE NEGATIVE (NEGATIVE); BENZODIAZEPINES SCREEN,URINE NEGATIVE (NEGATIVE); CANNABINOID SCREEN,URINE POSITIVE (NEGATIVE); COCAINE SCREEN,URINE POSITIVE (NEGATIVE); METHADONE SCREEN, URINE NEGATIVE (NEGATIVE); OPIATE SCREEN,URINE NEGATIVE (NEGATIVE); PHENCYCLIDINE SCREEN,URINE NEGATIVE (NEGATIVE)
[2019-06-27] MEDS ORDERED: OLANZapine 5 MG TABLET PO ONE
[2019-06-27] MEDS ORDERED: ACETAMINOPHEN 500 MG TABLET PO ONE
== END 2019-06-27 01:37 | disposition home or self-care (01) ==
LOC: EMS 18:05
DX: F20.9 Schizophrenia, unspecified (principal); F17.210 Nicotine dependence, cigarettes, uncomplicated; F12.90 Cannabis use, unspecified, uncomplicated
CPT/HCPCS: 36415; 80053; 80307; 85025; 99284; G0480

== ENCOUNTER 2019-07-20 15:30 | Emergency (ER) | payer OTHER ==
[~2019-07-20] VITALS: Ht 154.9 cm; Wt 45.5 kg
[~2019-07-20 15:30] MED LIST changes: +OLAN2.5T3 PO; -PALI39DI IM
[2019-07-20 17:29] LABS: BASOPHILS % (AUTO) 0.9 % (0.0-2.0); EOSINOPHILS % (AUTO) 3.6 % (1.0-6.0); HEMOGLOBIN 12.9 g/dL (12.0-16.0); LYMPHOCYTES # (AUTO) 1.7 K/uL (1.0-4.8); LYMPHOCYTES % (AUTO) 32.3 % (22.0-44.0); MEAN CORPUSCULAR HEMOGLOBIN 26.5 pg (26.0-34.0); MEAN CORPUSCULAR HGB CONC 32.3 G/dL (31.0-37.0); MEAN CORPUSCULAR VOLUME 82 fL (80-100); MONOCYTES # (AUTO) 0.4 K/uL (0.1-1.0); MONOCYTES % (AUTO) 6.6 % (2.0-9.0); NEUTROPHILS # (AUTO) 3.1 K/uL (1.8-7.7); NEUTROPHILS % (AUTO) 56.6 % (40.0-70.0); PLATELET COUNT (AUTO) 365 K/uL (150-450); RED BLOOD CELL COUNT(AUTO) 4.87 MIL/uL (4.00-5.20); RED CELL DISTRIBUTION WIDTH 14.5 % (11.5-14.5)
[2019-07-20 17:36] LABS: ANION GAP 5 mmol/L (8-16); CARBON DIOXIDE 30 mmol/L (22-29); CHLORIDE 103 mmol/L (98-107); CREATININE 0.56 mg/dL (0.60-1.30); GLOMERULAR FILTR. RATE CALC > 60 mL/min (>60); GLUCOSE,RANDOM 78 mg/dL (70-110); POTASSIUM 3.9 mmol/L (3.5-5.1); SODIUM SERUM 138 mmol/L (136-145); UREA NITROGEN, BLOOD 5 mg/dL (7-18)
[2019-07-20 17:42] LABS: ALANINE AMINOTRANSFERASE 9 U/L (12-78); ALBUMIN 3.1 g/dL (3.4-5.0); ALKALINE PHOSPHATASE 187 U/L (46-116); ASPARTATE AMINOTRANSFERASE 12 U/L (15-37); BILIRUBIN,TOTAL 0.1 mg/dL (0.1-1.0); TOTAL PROTEIN, SERUM 7.4 g/dL (6.4-8.2)
[2019-07-20 19:43] LABS: AMPHET/METH SCREEN,URINE POSITIVE (NEGATIVE); BARBITURATE SCREEN, URINE NEGATIVE (NEGATIVE); BENZODIAZEPINES SCREEN,URINE NEGATIVE (NEGATIVE); CANNABINOID SCREEN,URINE POSITIVE (NEGATIVE); COCAINE SCREEN,URINE NEGATIVE (NEGATIVE); METHADONE SCREEN, URINE NEGATIVE (NEGATIVE); OPIATE SCREEN,URINE NEGATIVE (NEGATIVE)
[2019-07-20 19:45] LABS: PHENCYCLIDINE SCREEN,URINE NEGATIVE (NEGATIVE)
[2019-07-21] MEDS ORDERED: DiphenhydrAMINE HCL 25 MG CAPSULE PO ONE (00:45)
[2019-07-21] MEDS ORDERED: OLANZapine 5 MG TABLET PO ONE (00:45)
[2019-07-21 01:13] VITALS: BP 132/88
== END 2019-07-21 02:05 | disposition home or self-care (01) ==
LOC: EMS 15:33
DX: F20.9 Schizophrenia, unspecified (principal); F17.210 Nicotine dependence, cigarettes, uncomplicated; F15.10 Other stimulant abuse, uncomplicated; F12.90 Cannabis use, unspecified, uncomplicated
CPT/HCPCS: 36415; 80053; 80307; 84703; 85025; 99284; G0480

== ENCOUNTER 2019-08-28 08:21 | Inpatient (IN) | payer MEDICARE, MEDICAID ==
[~2019-08-28] VITALS: Ht 149.9 cm; Wt 45.4 kg
[2019-08-28 08:41] LABS: BASOPHILS % (AUTO) 0.3 % (0.0-2.0); EOSINOPHILS % (AUTO) 0.5 % (1.0-6.0); HEMATOCRIT 38.4 % (36-46); HEMOGLOBIN 12.8 g/dL (12.0-16.0); LYMPHOCYTES # (AUTO) 1.9 K/uL (1.0-4.8); LYMPHOCYTES % (AUTO) 32.1 % (22.0-44.0); MEAN CORPUSCULAR HEMOGLOBIN 26.5 pg (26.0-34.0); MEAN CORPUSCULAR HGB CONC 33.3 G/dL (31.0-37.0); MEAN CORPUSCULAR VOLUME 80 fL (80-100); MONOCYTES # (AUTO) 0.4 K/uL (0.1-1.0); MONOCYTES % (AUTO) 6.4 % (2.0-9.0); NEUTROPHILS # (AUTO) 3.6 K/uL (1.8-7.7); NEUTROPHILS % (AUTO) 60.7 % (40.0-70.0); PLATELET COUNT (AUTO) 431 K/uL (150-450); RED BLOOD CELL COUNT(AUTO) 4.83 MIL/uL (4.00-5.20); RED CELL DISTRIBUTION WIDTH 14.9 % (11.5-14.5)
[2019-08-28 08:50] LABS: ANION GAP 8 mmol/L (8-16); CALCIUM, TOTAL 9.6 mg/dL (8.8-10.5); CARBON DIOXIDE 27 mmol/L (22-29); CHLORIDE 102 mmol/L (98-107); CREATININE 0.71 mg/dL (0.60-1.30); GLOMERULAR FILTR. RATE CALC > 60 mL/min (>60); GLUCOSE,RANDOM 80 mg/dL (70-110); POTASSIUM 3.6 mmol/L (3.5-5.1); SODIUM SERUM 137 mmol/L (136-145); UREA NITROGEN, BLOOD 7 mg/dL (7-18)
[2019-08-28 08:56] LABS: ALANINE AMINOTRANSFERASE 27 U/L (12-78); ALBUMIN 3.6 g/dL (3.4-5.0); ALKALINE PHOSPHATASE 143 U/L (46-116); ASPARTATE AMINOTRANSFERASE 24 U/L (15-37); BILIRUBIN,TOTAL 0.3 mg/dL (0.1-1.0); TOTAL PROTEIN, SERUM 8.5 g/dL (6.4-8.2)
[2019-08-28] MEDS ORDERED: OLANZapine 5 MG TABLET PO ONE (09:15)
[2019-08-28] MEDS ORDERED: ZOLPIDEM TARTRATE 10 MG TABLET PO PRN (10:00)
[2019-08-28] MEDS ORDERED: LORazepam 2 MG TABLET PO PRN (10:00)
[2019-08-28 12:00] VITALS: BP 107/69
[2019-08-28] MEDS ORDERED: INFLUENZA VIRUS VACCINE QVS 2019-20 (3YR+)/PF 60 MCG/0.5 ML SYRINGE IM ONE (13:15)
[2019-08-28 16:09] VITALS: BP 109/69
[2019-08-29 01:00] VITALS: BP 115/65
[2019-08-29] MEDS: OLANZapine 5 MG RAPDIS TABLET PO PRN ×2 (08:33→10:36)
[2019-08-29 09:15] LABS: CHOL/HDL RATIO 3.1 (3.9-5.7); FREE T4 (FREE THYROXINE) 1.14 ng/dL (0.76-1.46); THYROID STIMULATING HORMONE 0.12 uIU/mL (0.36-3.74)
[2019-08-29] MEDS: OLANZapine 5 MG TABLET PO SCH ×2 (09:30→16:08)
[2019-08-29 10:19] VITALS: BP 116/77
[2019-08-29] MEDS ORDERED: LOPERAMIDE HCL 2 MG CAPSULE PO PRN (19:00)
[2019-08-29 20:14] VITALS: BP 108/65
[2019-08-30 07:17] VITALS: BP 132/79
[2019-08-30] MEDS: OLANZapine 5 MG TABLET PO SCH ×2 (08:22→16:01)
[2019-08-30 08:56] VITALS: BP 127/77
[2019-08-30] MEDS: ACETAMINOPHEN 325 MG TABLET PO PRN (15:49)
[2019-08-30 16:17] VITALS: BP 136/86
[2019-08-30 16:49] VITALS: BP 136/86
[2019-08-31 07:01] VITALS: BP 124/77
[2019-08-31 08:11] LABS: APPEARANCE,URINE CLOUDY (CLEAR); BILIRUBIN,URINE NEGATIVE (NEGATIVE); GLUCOSE, URINE (UA) NEGATIVE (NEGATIVE); KETONES,URINE NEGATIVE (NEGATIVE); NITRATE,URINE NEGATIVE (NEGATIVE); OCCULT BLOOD,URINE NEGATIVE (NEGATIVE); PROTEIN,URINE NEGATIVE (NEGATIVE); UROBILINOGEN,URINE 0.2 mg/dL (<=1.0)
[2019-08-31 08:17] LABS: AMPHET/METH SCREEN,URINE NEGATIVE (NEGATIVE); BARBITURATE SCREEN, URINE NEGATIVE (NEGATIVE); BENZODIAZEPINES SCREEN,URINE NEGATIVE (NEGATIVE); CANNABINOID SCREEN,URINE NEGATIVE (NEGATIVE); COCAINE SCREEN,URINE NEGATIVE (NEGATIVE); METHADONE SCREEN, URINE NEGATIVE (NEGATIVE); OPIATE SCREEN,URINE NEGATIVE (NEGATIVE)
[2019-08-31 08:20] LABS: PHENCYCLIDINE SCREEN,URINE NEGATIVE (NEGATIVE)
[2019-08-31 08:25] LABS: LEUKOCYTE ESTERASE ,URINE MODERATE (NEGATIVE)
[2019-08-31 08:26] LABS: BACTERIA,URINE Moderate /HPF (None Seen); CALCIUM OXALATE CRYSTALS,UR Rare /LPF (None Seen); RBC,URINE 0-2 /HPF (0-2); SQUAMOUS EPITHELIAL CELL,UR Many /LPF (None Seen); YEAST,URINE Few /HPF (None Seen)
[2019-08-31] MEDS: OLANZapine 5 MG RAPDIS TABLET PO PRN (08:44)
[2019-08-31 08:49] VITALS: BP 132/77
[2019-08-31] MEDS: OLANZapine 5 MG TABLET PO SCH ×2 (09:25→17:13)
[2019-08-31 16:07] VITALS: BP 118/76
[2019-09-01 00:49] VITALS: BP 100/60
[2019-09-01] MEDS: OLANZapine 5 MG TABLET PO SCH ×2 (08:35→16:52)
[2019-09-01 08:42] VITALS: BP 103/67
[2019-09-01 16:12] VITALS: BP 103/68
[2019-09-02 06:36] VITALS: BP 123/76
[2019-09-02] MEDS: OLANZapine 5 MG TABLET PO SCH ×2 (08:14→16:07)
[2019-09-02 08:25] VITALS: BP 109/68
[2019-09-02] MEDS: ACETAMINOPHEN 325 MG TABLET PO PRN (16:07)
[2019-09-02 16:21] VITALS: BP 106/67
[2019-09-03 02:56] VITALS: BP 106/61
[2019-09-03] MEDS: GuaiFENesin/D-METHORPHAN [SUGAR-FREE] 200-20MG/10 ML SYRUP UDCUP PO PRN (02:56)
[2019-09-03] MEDS: ACETAMINOPHEN 325 MG TABLET PO PRN (02:57)
[2019-09-03 08:14] VITALS: BP 104/60
[2019-09-03] MEDS: OLANZapine 5 MG TABLET PO SCH ×2 (08:23→16:29)
[2019-09-03] MEDS: NITROFURANTOIN/NITROFURAN MAC 100 MG CAPSULE [MACROBID] PO SCH ×2 (08:23→16:30)
[2019-09-03 16:14] VITALS: BP 100/60
[2019-09-04 06:41] VITALS: BP 104/65
[2019-09-04] MEDS: OLANZapine 5 MG TABLET PO SCH ×2 (08:21→16:37)
[2019-09-04] MEDS: NITROFURANTOIN/NITROFURAN MAC 100 MG CAPSULE [MACROBID] PO SCH ×2 (08:21→16:37)
[2019-09-04 08:58] VITALS: BP 106/60
[2019-09-04 14:43] VITALS: BP 108/68
[2019-09-04] MEDS: ACETAMINOPHEN 325 MG TABLET PO PRN (14:43)
[2019-09-04 16:25] VITALS: BP 110/58
[2019-09-04] MEDS: GuaiFENesin/D-METHORPHAN [SUGAR-FREE] 200-20MG/10 ML SYRUP UDCUP PO PRN (16:43)
[2019-09-05] MEDS: GuaiFENesin/D-METHORPHAN [SUGAR-FREE] 200-20MG/10 ML SYRUP UDCUP PO PRN ×2 (05:14→21:24)
[2019-09-05 08:20] VITALS: BP 103/65
[2019-09-05] MEDS: OLANZapine 5 MG TABLET PO SCH (08:25)
[2019-09-05] MEDS: ACETAMINOPHEN 325 MG TABLET PO PRN (08:25)
[2019-09-05] MEDS: NITROFURANTOIN/NITROFURAN MAC 100 MG CAPSULE [MACROBID] PO SCH ×2 (08:25→17:43)
[2019-09-05 18:00] VITALS: BP 117/56
[2019-09-05] MEDS ORDERED: OLANZapine 10 MG TABLET PO SCH (21:00)
[2019-09-05] MEDS ORDERED: OLANZapine 5 MG TABLET PO SCH (21:00)
[2019-09-06 08:50] VITALS: BP 112/63
[2019-09-06] MEDS: NITROFURANTOIN/NITROFURAN MAC 100 MG CAPSULE [MACROBID] PO SCH ×2 (09:13→16:50)
[2019-09-06 16:06] VITALS: BP 112/55
[2019-09-06] MEDS: ACETAMINOPHEN 325 MG TABLET PO PRN (16:50)
[2019-09-06] MEDS: GuaiFENesin/D-METHORPHAN [SUGAR-FREE] 200-20MG/10 ML SYRUP UDCUP PO PRN (16:51)
[2019-09-06] MEDS: OLANZapine 5 MG RAPDIS TABLET PO PRN (17:53)
[2019-09-06] MEDS: OLANZapine 7.5 MG TABLET PO SCH (21:21)
[2019-09-07 00:32] VITALS: BP 107/67
[2019-09-07 08:28] VITALS: BP 115/65
[2019-09-07] MEDS: NITROFURANTOIN/NITROFURAN MAC 100 MG CAPSULE [MACROBID] PO SCH ×2 (08:39→17:28)
[2019-09-07 16:48] VITALS: BP 127/66
[2019-09-07] MEDS: OLANZapine 7.5 MG TABLET PO SCH (21:55)
[2019-09-08 06:02] VITALS: BP 117/62
[2019-09-08 10:48] VITALS: BP 121/82
[2019-09-08 16:08] VITALS: BP 140/75
[2019-09-08] MEDS: GuaiFENesin/D-METHORPHAN [SUGAR-FREE] 200-20MG/10 ML SYRUP UDCUP PO PRN (16:51)
[2019-09-08] MEDS: OLANZapine 10 MG TABLET PO SCH (20:40)
[2019-09-09 07:04] VITALS: BP 127/64
[2019-09-09 08:34] VITALS: BP 108/66
[2019-09-09 11:52] VITALS: BP 112/72
[2019-09-09] MEDS: ACETAMINOPHEN 325 MG TABLET PO PRN (11:52)
[2019-09-09 16:00] VITALS: BP 114/65
[2019-09-09] MEDS: OLANZapine 10 MG TABLET PO SCH (20:22)
[2019-09-10 06:52] VITALS: BP 113/68
[2019-09-10] MEDS ORDERED: OLAN10TA3 PO (08:11)
[2019-09-10 08:27] VITALS: BP 109/64
[2019-09-10] MEDS: GuaiFENesin/D-METHORPHAN [SUGAR-FREE] 200-20MG/10 ML SYRUP UDCUP PO PRN (12:42)
== END 2019-09-10 13:20 | disposition home or self-care (01) | DRG 885 ==
LOC: EMS 08:22 → 2WR 11:54 → B2S 11:54 → UNDOADMIN 11:54 → B2S 09-07 03:09
PROVIDERS: ADMIT Psychiatry & Neurology Psychiatry; ATTEND Psychiatry & Neurology Psychiatry
DX: F25.0 Schizoaffective disorder, bipolar type (principal); N39.0 Urinary tract infection, site not specified; R45.851 Suicidal ideations; R45.87 Impulsiveness; H54.7 Unspecified visual loss; F12.90 Cannabis use, unspecified, uncomplicated; F41.9 Anxiety disorder, unspecified; Z87.891 Personal history of nicotine dependence; Z59.0 Homelessness; Z91.19 Patient's noncompliance with other medical treatment and regimen; Z28.21 Immunization not carried out because of patient refusal
CPT/HCPCS: 84439; 84443; 87086; 90686; G0480

== ENCOUNTER 2019-10-16 02:14 | Inpatient (IN) | payer MEDICARE, MEDICAID ==
[~2019-10-16] VITALS: Ht 152.4 cm; Wt 49.9 kg
[~2019-10-16 02:14] MED LIST changes: +OLAN10TA3 PO; -OLAN2.5T3 PO
[2019-10-16 03:19] LABS: ANION GAP 7 mmol/L (8-16); CALCIUM, TOTAL 9.3 mg/dL (8.8-10.5); CARBON DIOXIDE 28 mmol/L (22-29); CHLORIDE 102 mmol/L (98-107); CREATININE 0.73 mg/dL (0.60-1.30); GLOMERULAR FILTR. RATE CALC > 60 mL/min (>60); GLUCOSE,RANDOM 78 mg/dL (70-110); POTASSIUM 3.9 mmol/L (3.5-5.1); SODIUM SERUM 137 mmol/L (136-145); UREA NITROGEN, BLOOD 13 mg/dL (7-18)
[2019-10-16 03:30] LABS: ALANINE AMINOTRANSFERASE 17 U/L (12-78); ALBUMIN 3.5 g/dL (3.4-5.0); ALKALINE PHOSPHATASE 108 U/L (46-116); ASPARTATE AMINOTRANSFERASE 21 U/L (15-37); BILIRUBIN,TOTAL 0.2 mg/dL (0.1-1.0); HCG,QUANTITATIVE < 1 mIU/mL (0-6); TOTAL PROTEIN, SERUM 7.6 g/dL (6.4-8.2)
[2019-10-16 03:31] LABS: BASOPHILS % (AUTO) 0.9 % (0.0-2.0); EOSINOPHILS % (AUTO) 2.9 % (1.0-6.0); HEMATOCRIT 37.2 % (36-46); HEMOGLOBIN 12.3 g/dL (12.0-16.0); LYMPHOCYTES # (AUTO) 2.3 K/uL (1.0-4.8); LYMPHOCYTES % (AUTO) 25.3 % (22.0-44.0); MEAN CORPUSCULAR HEMOGLOBIN 26.5 pg (26.0-34.0); MEAN CORPUSCULAR VOLUME 81 fL (80-100); MONOCYTES # (AUTO) 0.7 K/uL (0.1-1.0); MONOCYTES % (AUTO) 7.8 % (2.0-9.0); NEUTROPHILS # (AUTO) 5.6 K/uL (1.8-7.7); NEUTROPHILS % (AUTO) 63.1 % (40.0-70.0); PLATELET COUNT (AUTO) 441 K/uL (150-450); RED BLOOD CELL COUNT(AUTO) 4.62 MIL/uL (4.00-5.20); RED CELL DISTRIBUTION WIDTH 16.6 % (11.5-14.5)
[2019-10-16 03:35] LABS: APPEARANCE,URINE CLOUDY (CLEAR); BILIRUBIN,URINE NEGATIVE (NEGATIVE); GLUCOSE, URINE (UA) NEGATIVE (NEGATIVE); KETONES,URINE NEGATIVE (NEGATIVE); LEUKOCYTE ESTERASE ,URINE MODERATE (NEGATIVE); NITRATE,URINE NEGATIVE (NEGATIVE); OCCULT BLOOD,URINE SMALL (NEGATIVE); PH,URINE 5.5 (5.0-8.0); PROTEIN,URINE NEGATIVE (NEGATIVE); UROBILINOGEN,URINE 0.2 mg/dL (<=1.0)
[2019-10-16 03:41] LABS: AMPHET/METH SCREEN,URINE POSITIVE (NEGATIVE); BARBITURATE SCREEN, URINE NEGATIVE (NEGATIVE); BENZODIAZEPINES SCREEN,URINE NEGATIVE (NEGATIVE); CANNABINOID SCREEN,URINE POSITIVE (NEGATIVE); COCAINE SCREEN,URINE POSITIVE (NEGATIVE); METHADONE SCREEN, URINE NEGATIVE (NEGATIVE); OPIATE SCREEN,URINE NEGATIVE (NEGATIVE); PHENCYCLIDINE SCREEN,URINE NEGATIVE (NEGATIVE)
[2019-10-16 03:45] LABS: BACTERIA,URINE Rare /HPF (None Seen); SQUAMOUS EPITHELIAL CELL,UR Moderate /LPF (None Seen)
[2019-10-16] MEDS ORDERED: ZOLPIDEM TARTRATE 10 MG TABLET PO PRN (04:00)
[2019-10-16] MEDS ORDERED: LORazepam 2 MG TABLET PO PRN (04:00)
[2019-10-16 09:35] VITALS: BP 124/85
[2019-10-16] MEDS: HALOPERIDOL 5 MG TABLET PO PRN (16:37)
[2019-10-16 17:31] VITALS: BP 134/89
[2019-10-16] MEDS ORDERED: BENZOCAINE/MENTHOL LOZENGE PO PRN (17:45)
[2019-10-16] MEDS: OLANZapine 10 MG TABLET PO SCH (20:12)
[2019-10-17 05:24] VITALS: BP 113/76
[2019-10-17 08:01] LABS: CHOL/HDL RATIO 2.5 (3.9-5.7)
[2019-10-17 08:03] LABS: APPEARANCE,URINE CLOUDY (CLEAR); BILIRUBIN,URINE NEGATIVE (NEGATIVE); GLUCOSE, URINE (UA) NEGATIVE (NEGATIVE); KETONES,URINE NEGATIVE (NEGATIVE); LEUKOCYTE ESTERASE ,URINE SMALL (NEGATIVE); NITRATE,URINE NEGATIVE (NEGATIVE); OCCULT BLOOD,URINE TRACE (NEGATIVE); PH,URINE 6.5 (5.0-8.0); PROTEIN,URINE NEGATIVE (NEGATIVE); UROBILINOGEN,URINE 0.2 mg/dL (<=1.0)
[2019-10-17 08:20] LABS: AMORPHOUS SEDIMENT,UR Moderate /LPF (None Seen); BACTERIA,URINE None Seen /HPF (None Seen); RBC,URINE None Seen /HPF (0-2); SQUAMOUS EPITHELIAL CELL,UR Few /LPF (None Seen); WBC,URINE 0-2 /HPF (0-5)
[2019-10-17 08:31] VITALS: BP 124/69
[2019-10-17] MEDS: NICOTINE 21 MG/24 HOUR PATCH TD SCH (09:13)
[2019-10-17 16:34] VITALS: BP 120/61
[2019-10-17] MEDS: OLANZapine 10 MG TABLET PO SCH (20:09)
[2019-10-18 06:01] VITALS: BP 118/64
[2019-10-18] MEDS: NICOTINE 21 MG/24 HOUR PATCH TD SCH (09:00)
[2019-10-18 16:13] VITALS: BP 126/89
[2019-10-18] MEDS: HALOPERIDOL 5 MG TABLET PO PRN (17:59)
[2019-10-18] MEDS: NAPROXEN 500 MG TABLET PO PRN (17:59)
[2019-10-18] MEDS: OLANZapine 10 MG TABLET PO SCH (20:13)
[2019-10-19 08:28] VITALS: BP 112/74
[2019-10-19] MEDS: NICOTINE 21 MG/24 HOUR PATCH TD SCH (09:17)
[2019-10-19 17:34] VITALS: BP 116/66
[2019-10-19] MEDS: NAPROXEN 500 MG TABLET PO PRN (17:36)
[2019-10-19] MEDS: OLANZapine 10 MG TABLET PO SCH (20:43)
[2019-10-20] MEDS ORDERED: INFLUENZA VIRUS VACCINE QVS 2019-20 (3YR+)/PF 60 MCG/0.5 ML SYRINGE IM ONE (02:00)
[2019-10-20 03:59] VITALS: BP 119/72
[2019-10-20 08:18] VITALS: BP 128/66
[2019-10-20] MEDS: NICOTINE 21 MG/24 HOUR PATCH TD SCH (08:55)
[2019-10-20] MEDS: NAPROXEN 500 MG TABLET PO PRN (12:33)
== END 2019-10-20 13:00 | disposition home or self-care (01) | DRG 885 ==
LOC: EMS 02:15 → B2S 05:20
PROVIDERS: ADMIT Psychiatry & Neurology Psychiatry; ATTEND Psychiatry & Neurology Psychiatry
DX: F25.0 Schizoaffective disorder, bipolar type (principal); R45.851 Suicidal ideations; F41.9 Anxiety disorder, unspecified; F17.210 Nicotine dependence, cigarettes, uncomplicated; H26.9 Unspecified cataract; F19.10 Other psychoactive substance abuse, uncomplicated; Z59.0 Homelessness; Z91.19 Patient's noncompliance with other medical treatment and regimen; Z98.42 Cataract extraction status, left eye
CPT/HCPCS: 87086; G0480

== ENCOUNTER 2020-12-08 14:21 | Emergency (ER) | payer OTHER ==
[~2020-12-08] VITALS: Ht 160 cm; Wt 61.4 kg
[2020-12-08 15:52] LABS: AMPHET/METH SCREEN,URINE NEGATIVE (NEGATIVE); BARBITURATE SCREEN, URINE NEGATIVE (NEGATIVE); BENZODIAZEPINES SCREEN,URINE NEGATIVE (NEGATIVE); CANNABINOID SCREEN,URINE NEGATIVE (NEGATIVE); COCAINE SCREEN,URINE NEGATIVE (NEGATIVE); METHADONE SCREEN, URINE NEGATIVE (NEGATIVE); OPIATE SCREEN,URINE NEGATIVE (NEGATIVE); PHENCYCLIDINE SCREEN,URINE NEGATIVE (NEGATIVE)
[2020-12-08 15:57] LABS: ANION GAP 9 mmol/L (8-16); CALCIUM, TOTAL 8.7 mg/dL (8.8-10.5); CARBON DIOXIDE 26 mmol/L (22-29); CHLORIDE 105 mmol/L (98-107); CREATININE 0.83 mg/dL (0.60-1.30); GLOMERULAR FILTR. RATE CALC > 60 mL/min (>60); GLUCOSE,RANDOM 94 mg/dL (70-110); POTASSIUM 3.7 mmol/L (3.5-5.1); SODIUM SERUM 140 mmol/L (136-145); UREA NITROGEN, BLOOD 16 mg/dL (7-18)
[2020-12-08 15:58] LABS: BASOPHILS % (AUTO) 0.8 % (0.0-2.0); EOSINOPHILS % (AUTO) 2.9 % (1.0-6.0); HEMATOCRIT 35.9 % (36-46); HEMOGLOBIN 11.8 g/dL (12.0-16.0); LYMPHOCYTES # (AUTO) 2.3 K/uL (1.0-4.8); LYMPHOCYTES % (AUTO) 37.3 % (22.0-44.0); MEAN CORPUSCULAR HEMOGLOBIN 26.2 pg (26.0-34.0); MEAN CORPUSCULAR HGB CONC 32.9 G/dL (31.0-37.0); MEAN CORPUSCULAR VOLUME 80 fL (80-100); MONOCYTES # (AUTO) 0.3 K/uL (0.1-1.0); MONOCYTES % (AUTO) 5.5 % (2.0-9.0); NEUTROPHILS # (AUTO) 3.3 K/uL (1.8-7.7); NEUTROPHILS % (AUTO) 53.5 % (40.0-70.0); PLATELET COUNT (AUTO) 357 K/uL (150-450); RED CELL DISTRIBUTION WIDTH 15.9 % (11.5-14.5)
[2020-12-08 16:06] LABS: ALANINE AMINOTRANSFERASE 12 U/L (12-78); ALBUMIN 3.1 g/dL (3.4-5.0); ALKALINE PHOSPHATASE 179 U/L (46-116); ASPARTATE AMINOTRANSFERASE 7 U/L (15-37); BILIRUBIN,TOTAL 0.2 mg/dL (0.1-1.0); TOTAL PROTEIN, SERUM 6.5 g/dL (6.4-8.2)
[2020-12-08] MEDS ORDERED: ACETAMINOPHEN 500 MG TABLET PO ONE (16:15)
[2020-12-08 19:45] VITALS: BP 119/76
== END 2020-12-08 19:58 | disposition home or self-care (01) ==
LOC: EMS 15:01
DX: F20.9 Schizophrenia, unspecified (principal)
CPT/HCPCS: 36415; 80053; 80307; 85025; 99284; G0480